=== PATIENT | female | born 1955 | race Hispanic/Latino ===

== ENCOUNTER 2024-01-04 23:38 | Emergency (ER) | payer SELFPAY ==
[2024-01-05] MEDS ORDERED: LIDOCAINE 1% 20 ML MDV ONE (00:32)
--- NOTE | 2024-01-05 01:00 | EDPHYS ---
[facility] Name: Grace Gannon Age: 68 yrs Sex: Female : 1955 Arrival Date: 01/04/2024 Time: 23:38 Bed 8 Private MD: ED Physician Dell Andrade HPI: 01/03 23:56 This 68 yrs old Female presents to ER via Unassigned with complaints of acute sp4 complaint . 01/04 04:30 Patient presents with acute foreign body in the left ear most likely tiwari. Patient's sp4 family attempted to remove with a tiwari at home but ended up pushing it further into the ear canal. Historical: - Allergies: 00:30 No Known Allergies; jb4 - PMHx: 00:30 None; jb4 - PSHx: 00:30 None; jb4 - Immunization history:: Adult Immunizations up to date. - Infectious Disease History:: Denies. - Social history:: Smoking status: Patient denies any tobacco usage or history of. - Family history:: not pertinent. ROS: 04:30 Constitutional: Negative for fever, chills, and weight loss, ENT: Positive for left ear sp4 foreign body 04:30 All other systems are negative, Exam: 04:30 Constitutional: This is a well developed, well nourished patient who is awake, alert, sp4 and in no acute distress. Head/Face: Normocephalic, atraumatic. Eyes: Pupils equal round and reactive to light, extra-ocular motions intact. Lids and lashes normal. Conjunctiva and sclera are not injected. Cornea within normal limits. Periorbital areas with no swelling, redness, or edema. ENT: Nares patent. No nasal discharge, no septal abnormalities noted. Oropharynx with no redness, swelling, or masses, exudates, or evidence of obstruction, uvula midline. Mucous membranes moist. Right ear exam is containing wax plug, examination of the left ear reveals distal ear canal foreign body appearing as a small cockroach . Neck: Trachea midline, no thyromegaly or masses palpated, and no cervical lymphadenopathy. Supple, full range of motion without nuchal rigidity, or vertebral point tenderness. Chest/axilla: Normal chest wall appearance and motion. Nontender with no deformity. No lesions are appreciated. Cardiovascular: Regular rate and rhythm with a normal S1 and S2. No gallops, murmurs, or rubs. Normal PMI, no JVD. No pulse deficits. Respiratory: Lungs have equal breath sounds bilaterally, clear to auscultation and percussion. No rales, rhonchi or wheezes noted. No increased work of breathing, no retractions or nasal flaring. Abdomen/GI: Soft, with normal bowel sounds. No distension or tympany. No guarding or rebound. No evidence of tenderness throughout. Back: No spinal tenderness. No costovertebral tenderness. Skin: Warm, dry with normal turgor. Normal color with no rashes, no lesions, and no evidence of cellulitis. MS/ Extremity: Pulses equal, no cyanosis. Neurovascular intact. Full, normal range of motion. Neuro: Awake and alert, GCS 15, oriented to person, place, time, and situation. Cranial nerves II-XII grossly intact. Motor strength 5/5 in all extremities. Sensory grossly intact. Psych: Awake, alert, with orientation to person, place and time. Behavior, mood, and affect are within normal limits Vital Signs: 00:19 BP 193 / 81; Pulse 74; Resp 19; Pulse Ox 100% on R/A; Pain 2/10; tm6 01:33 BP 202 / 82; Pulse 87; Resp 19; Temp 97.1(TE); Pulse Ox 100% on R/A; Pain 2/10; tm6 01:47 BP 169 / 74; tm6 00:19 Pain Scale: Adult tm6 01:33 Pain Scale: Adult tm6 [place] Coma Score: 04:30 Eye Response: spontaneous(4). Motor Response: obeys commands(6). Verbal Response: sp4 oriented(5). Total: 15. Procedures: 04:30 Foreign Body Removal: Small cockroach left ear canal, from the left ear canal, by using sp4 alligator clamps, using a cotton-tipped swab, using a curette, normal saline irrigation, tweezers, The patient tolerated the removal The foreign body could not be removed secondary to the location deep in the ear canal. Patient referred to ENT for further evaluation and extraction of the small cockroach from the left ear canal. MDM: 01:00 Patient medically screened. sp4 04:30 Differential Diagnosis Ear canal foreign body. Data reviewed: vital signs, nurses sp4 notes. Data reviewed: old medical records. ED course: Patient also manifested with elevated blood pressure and was given 0.2 mg p.o. clonidine.. Administered Medications: 01:12 Drug: Lidocaine Infiltration (1 %) 20 ml 20 ml Infiltration once; to bedside {Note: tm6 administered by .} Volume: 20 ml; Route: Infiltration; 01:12 Drug: Lidocaine Infiltration (1 %) 20 ml 20 ml Infiltration once; to bedside {Note: tm6 administered by MD.} Volume: 20 ml; Route: Infiltration; 01:26 Drug: Ondansetron PO 4 mg PO once Route: PO; tm6 01:26 Drug: Cephalexin PO 500 mg PO once Route: PO; tm6 01:26 Drug: Ibuprofen PO 400 mg PO once Route: PO; tm6 01:27 Drug: HYDROcodone-acetaminophen PO 5 mg-325 mg 2 tabs PO once Route: PO; tm6 01:47 Not Given (Patient Refused): clonidine0.2 mg PO once tm6 Disposition Summary: 01/05/24 01:00 Discharge Ordered Notes: Location: Home sp4 Problem: new sp4 Symptoms: have improved sp4 Condition: Stable sp4 Diagnosis - Acute foreign body left ear canal sp4 Followup: sp4 - With: Gale Mcfadden MD - When: 1 - 2 days - Reason: Recheck today's complaints Discharge Instructions: - Discharge Summary Sheet sp4 - Ear Foreign Body, [id number] sp4 Forms: - Patient Portal Instructions sp4 Prescriptions: - Cephalexin 250 mg Oral Capsule - take 1 capsule ORAL route every 8 hours for 10 days; 30 capsule; Refills: 0, sp4 Product Selection Permitted - Tramadol 50 mg Oral tablet - take 1 tablet ORAL route every 8 hours PRN pain; 20 tablet; Refills: 0, Product sp4 Selection Permitted Signatures: Obdulio Friedman RN RN jb4 Dell Andrade MD MD sp4 Pepper Lee RN RN tm6
--- NOTE | 2024-01-05 01:00 | ER ---
Nurse's Notes [facility] Name: Grace Gannon Age: 68 yrs Sex: Female : 1955 Arrival Date: 01/04/2024 Time: 23:38 Bed 8 Private MD: Diagnosis: Acute foreign body left ear canal Presentation: 01/04 00:27 Chief complaint: Patient states: I have had a bug in my left ear since 2 am yesterday. jb4 Coronavirus screen: At this time, the client does not indicate any symptoms associated with coronavirus-19. Ebola Screen: No symptoms or risks identified at this time. Initial Sepsis Screen: Does the patient meet any 2 criteria? No. Patient's initial sepsis screen is negative. Does the patient have a suspected source of infection? No. Patient's initial sepsis screen is negative. Risk Assessment: Do you want to hurt yourself or someone else? Patient reports no desire to harm self or others. Onset of symptoms was January 05, 2024. 00:27 Method Of Arrival: Ambulatory jb4 00:27 Acuity: BREEZY 4 jb4 Historical: - Allergies: 00:30 No Known Allergies; jb4 - PMHx: 00:30 None; jb4 - PSHx: 00:30 None; jb4 - Immunization history:: Adult Immunizations up to date. - Infectious Disease History:: Denies. - Social history:: Smoking status: Patient denies any tobacco usage or history of. - Family history:: not pertinent. Screenin:19 [facility] ED Fall Risk Assessment (Adult) History of falling in the last 3 months, tm6 including since admission No falls in past 3 months (0 pts) Confusion or Disorientation No (0 pts) Intoxicated or Sedated No (0 pts) Impaired Gait No (0 pts) Mobility Assist Device Used No (0 pt) Altered Elimination No (0 pt) Score/Fall Risk Level 0 - 2 = Low Risk Oriented to surroundings, Maintained a safe environment, Educated pt \T\ family on fall prevention, incl call for assistance when getting out of bed. Abuse screen: Denies threats or abuse. Denies injuries from another. Nutritional screening: No deficits noted. Tuberculosis screening: No symptoms or risk factors identified. Assessment: 00:17 General: Appears in no apparent distress. Behavior is calm, cooperative. Pain: tm6 Complains of pain in left ear Pain currently is 2 out of 10 on a pain scale. Quality of pain is described as aching, Pain began 1 day ago. Neuro: Level of Consciousness is awake, alert, obeys commands, Oriented to person, place, time, situation. Cardiovascular: No deficits noted. Patient's skin is warm and dry. Respiratory: Airway is patent Respiratory effort is even, unlabored, Respiratory pattern is regular, symmetrical. GI: No signs and/or symptoms were reported involving the gastrointestinal system. Abdomen is flat, non-distended. : No signs and/or symptoms were reported regarding the genitourinary system. EENT: Reports pain in left ear bug in left ear since 0200 01/04/24. Derm: No signs and/or symptoms reported regarding the dermatologic system. Musculoskeletal: No signs and/or symptoms reported regarding the musculoskeletal system. 01:33 Reassessment: Patient appears in no apparent distress at this time. discharge pending tm6 lowering of blood pressure. Vital Signs: 00:19 BP 193 / 81; Pulse 74; Resp 19; Pulse Ox 100% on R/A; Pain 2/10; tm6 01:33 BP 202 / 82; Pulse 87; Resp 19; Temp 97.1(TE); Pulse Ox 100% on R/A; Pain 2/10; tm6 01:47 BP 169 / 74; tm6 00:19 Pain Scale: Adult tm6 01:33 Pain Scale: Adult tm6 [place] Coma Score: 04:30 Eye Response: spontaneous(4). Motor Response: obeys commands(6). Verbal Response: sp4 oriented(5). Total: 15. ED Course: 01/03 23:50 Patient arrived in ED. jb4 23:56 Dell Andrade MD is Attending Physician. sp4 01/04 00:15 Pepper Lee, FELIX is Primary Nurse. tm6 00:19 Patient has correct armband on for positive identification. Bed in low position. Call tm6 light in reach. Side rails up X 1. Provided Education on: use of call rivers. Client placed on continuous cardiac and pulse oximetry monitoring. NIBP monitoring applied. Pulse ox on. NIBP on. Door closed. Noise minimized. Warm blanket given. Pillow given. 00:30 Triage completed. jb4 00:30 Arm band placed on right wrist. jb4 00:59 Gale Mcfadden MD is Referral Physician. sp4 01:47 No provider procedures requiring assistance completed. Patient did not have IV access tm6 during this emergency room visit. Administered Medications: 01:12 Drug: Lidocaine Infiltration (1 %) 20 ml 20 ml Infiltration once; to bedside {Note: tm6 administered by .} Volume: 20 ml; Route: Infiltration; 01:12 Drug: Lidocaine Infiltration (1 %) 20 ml 20 ml Infiltration once; to bedside {Note: tm6 administered by MD.} Volume: 20 ml; Route: Infiltration; 01:26 Drug: Ondansetron PO 4 mg PO once Route: PO; tm6 01:26 Drug: Cephalexin PO 500 mg PO once Route: PO; tm6 01:26 Drug: Ibuprofen PO 400 mg PO once Route: PO; tm6 01:27 Drug: HYDROcodone-acetaminophen PO 5 mg-325 mg 2 tabs PO once Route: PO; tm6 01:47 Not Given (Patient Refused): clonidine0.2 mg PO once tm6 Medication: 00:19 VIS not applicable for this client. tm6 Outcome: 01:00 Discharge ordered by MD. sp4 01:47 Discharged to home ambulatory, with family, tm6 01:47 Condition: stable 01:47 Discharge instructions given to patient, family, Instructed on discharge instructions, follow up and referral plans. medication usage, Demonstrated understanding of instructions, follow-up care, medications, Prescriptions given X 2, 01:48 Patient left the ED. tm6 Signatures: Obdulio Friedman RN RN jb4 Dell Andrade MD MD sp4 Pepper Lee RN RN tm6
[2024-01-05] MEDS ORDERED: IBUPROFEN 400 MG TAB ONE (01:14)
[2024-01-05] MEDS ORDERED: HYDROCODONE/APAP 5/325 MG TAB ONE (01:14)
[2024-01-05] MEDS ORDERED: ONDANSETRON 4 MG (ODT) TAB ONE (01:14)
[2024-01-05] MEDS ORDERED: CEPHALEXIN 250 MG CAP ONE (01:14)
[2024-01-05] MEDS ORDERED: cloNIDine HCL 0.1 MG TAB ONE (01:28)
[2024-01-05 06:49] VITALS: O2SAT 100
[2024-01-05 06:51] VITALS: BP 169/74; TEMP 97.1
== END 2024-01-05 01:48 | disposition home or self-care (01) ==
LOC: ER 23:38
PROC: 09C4XZZ Extirpation of Matter from Left External Auditory Canal, External Approach (ICD-10-PCS; principal; 2024-01-05)
DX: T16.2XXA Foreign body in left ear, initial encounter (principal)
CPT/HCPCS: 99284; J2001; Q0162